=== PATIENT | female | born 1975 | race Caucasian/White ===

== ENCOUNTER 2019-08-05 11:46 | Emergency (ER) | payer OTHER, SELFPAY ==
--- NOTE | 2019-08-05 11:54 | ED.GENADULT ---
HPI - General Adult General Chief complaint: Upper Respiratory Infection Stated complaint: Cold/Flu symptoms Time Seen by Provider: 08/05/19 12:18 Source: patient and RN notes reviewed Mode of arrival: ambulatory Limitations: no limitations History of Present Illness HPI narrative: This patient has had a onset of sinus symptoms consisting of green nasal drainage and postnasal drip sensation with mild sore throat which she feels is from the drainage that began on 08/02/2019. She is also had frontal and maxillary sinus pressure bilaterally. The patient's not had any ear pain or drainage from the ears. She has had no cough. She has had no rashes. She has not noticed a fever although she has not actually taken her temperature with a thermometer. She has had no known exposure to anyone with strep throat, mono, influenza, bronchitis, pneumonia that she is aware of. She has not been traveling. She did have a flu vaccine this season. She would like to be tested for influenza today. Related Data Home Medications Medication Instructions Recorded Confirmed doxycycline hyclate 50 mg PO DAILY 08/05/19 08/05/19 spironolactone 100 mg PO DAILY 08/05/19 08/05/19 Allergies Allergy/AdvReac Type Severity Reaction Status Date / Time Sulfa (Sulfonamide Allergy Unknown Hives Verified 08/05/19 12:21 Antibiotics) Review of Systems Review of Systems: Narrative: CONSTITUTIONAL: Denies fever, chills, or sweats. Noncontributory except as pertains to the past medical history and history of present illness. EYES: Denies visual changes, redness, or discharge. ENT: Denies rhinorrhea, congestion, sore throat, or otalgia. CARDIOVASCULAR: Denies chest pain, palpitations, or edema. RESPIRATORY: Denies cough or dyspnea. GASTROINTESTINAL: Denies abdominal pain, nausea, vomiting, or diarrhea. GENITOURINARY: Denies dysuria or hematuria. SKIN: Denies rash or itching. MUSCULOSKELETAL: Denies back pain, joint pain, or myalgia. NEUROLOGIC: Denies headache, numbness, or weakness. PSYCHIATRIC: Denies anxiety or depression. [facility] Family History Family History (Updated 10/29/17 @ 12:24 by DOCTOR UNKNOWN) Mother Patient's mother is in good health Father Family history of malignant neoplasm Carcinoma of colon Grandparent Diabetes mellitus Family history of hypercholesterolemia Hypertension Social History Social History Smoking status: Current every day smoker Second hand tobacco smoke exposure: No Alcohol intake: current Gender identity (if verbalized by the patient): Female Comments At time of signature, I have reviewed and agree with nursing past medical, surgical, social, and family history.Please see nursing chart for further information. There is no relevant family history pertinent to the presenting complaint. Exam Narrative: Exam Narrative: GENERAL: Well-appearing, well-nourished, and in no acute distress. HEAD: Normocephalic, atraumatic. There is no palpation tenderness over the frontal, maxillary, mastoid sinus areas. EYES: PERRLA and EOMI. EARS: TM's clear bilaterally and the canals are clear. NOSE: Nares are edematous and have purulent rhinorrhea postnasal drip. THROAT:Mucous membranes moist.Oropharynx normal without erythema or exudates. NECK: Supple. No adenopathy of the neck, supraclavicular, axillary, or inguinal areas. RESPIRATORY: No respiratory distress. Airway patent. Respirations non-labored. There are no wheezes, no rales, no retractions, no use of accessory muscles or respirations. Patient is not cyanotic and not dyspneic. Pulse ox on room air is 99% current temperature is 37.3 ?C. HEART: Regular rate and rhythm. No murmur heard. Normal peripheral pulses. ABDOMEN: Soft, nontender, nondistended, normal active bowel sounds.No masses. No rebound or guarding, No organomegaly. No CVA pain. No pain McBurney's point. The patient has a negative House sign and negative Rovsing sign. There are no pulsatile masses or
[2019-08-05 12:12] VITALS: BP 121/70; PULSE 91; RESP 16; TEMP 37.3; O2SAT 99
== END 2019-08-05 12:40 | disposition home or self-care (01) ==
LOC: EXPCOLL 11:57
PROVIDERS: Emergency Provider Family Medicine; PCP Internal Medicine
DX: J01.10 Acute frontal sinusitis, unspecified (principal)
CPT/HCPCS: 87804; 99213; G0463

== ENCOUNTER 2020-05-29 13:37 | Outpatient (CLI) | payer OTHER, SELFPAY ==
--- NOTE | ~2020-05-29 | US_ITS ---
EXAMINATION: US thyroid EXAM DATE: 05/29/2020 13:59 INDICATION: GOITER E04.9 Nontoxic goiter, unspecified . TECHNIQUE: Multiple grayscale and Doppler images of the thyroid were obtained (by a technologist who performed the scan) and subsequently reviewed. Individual nodules and recommendations may be reporte d in accordance with TI-RADS system as designated by the 2017 ACR White Paper TI-RADS committee. Comp arison is made to prior examination from 11/07/2017. FINDINGS: Right thyroid lobe measures 5.5 x 2.1 x 2.4 cm, the left thyroid lobe measures 6.0 x 1.5 x 2.4 cm. Th is is moderately enlarged. There are several thyroid nodules up to 5 mm in size, not significantly ch anged. IMPRESSION: 1. Moderate thyromegaly. 2. Several small nodules not clinically significant. Reviewed, dictated and finalized at location B. [employer]
== END 2020-05-29 13:38 | disposition home or self-care (01) ==
PROVIDERS: PCP Internal Medicine; Visit Provider Obstetrics & Gynecology
DX: E04.9 Nontoxic goiter, unspecified (principal)
CPT/HCPCS: 76536

== ENCOUNTER 2020-07-18 17:20 | Outpatient (CLI) | payer OTHER, SELFPAY ==
--- NOTE | ~2020-07-18 | MM_ITS ---
EXAMINATION: MM screening [facility] w janet HISTORY: Screening TECHNIQUE: Craniocaudal and mediolateral oblique 3-D tomosynthesis images were obtained and synthetic 2-D images were generated. CAD analysis was submitted and interpreted. COMPARISON: Comparison to multiple prior studies sequentially, with oldest reviewed study dated 11/13. BREAST PARENCHYMAL COMPOSITION: There are scattered areas of fibroglandular density. FINDINGS: There is no evidence of suspicious mass, calcification, or architectural distortion to sugg est malignancy in either breast. There has been no suspicious interval change. IMPRESSION: 1. No mammographic evidence of malignancy. 2. Recommend routine screening mammography in one year. BI-RADS Category 1: Negative Reviewed, dictated and finalized at location A. ERIES DIVER
== END 2020-07-18 17:21 | disposition home or self-care (01) ==
LOC: ANHIMG 17:22
PROVIDERS: PCP Internal Medicine; Visit Provider Obstetrics & Gynecology
DX: Z12.31 Encounter for screening mammogram for malignant neoplasm of breast (principal)
CPT/HCPCS: 77063; 77067

== ENCOUNTER 2021-08-13 00:43 | Day surgery (SDC) | payer BC, SELFPAY ==
[2021-08-06 13:27] VITALS: BMI 34.4
--- NOTE | 2021-08-13 11:49 | P.PNAN_ITS ---
Anes - Initial Pre Proc Eval Procedure: Operation Date: 08/13/21 13:00 Proposed Procedures p Colonoscopy - Tanner Xie MD Date/Time: 08/13/21 11:49 Surgeon: Tanner Xie MD Pre Op Diagnosis: melena Patient Data Age: 45 Gender: F Height: 1.78 m Weight: 109 kg Allergies Allergy/AdvReac Type Severity Reaction Status Date / Time Sulfa (Sulfonamide Allergy Unknown Hives Verified 08/13/21 11:54 Antibiotics) Home Medications Medication Instructions Recorded Confirmed Type spironolactone 200 mg PO DAILY 08/05/19 08/06/21 History sertraline 100 mg tablet 100 mg PO DAILY #90 tablet 01/01/21 08/06/21 Rx Patient hx anesthesia problems: none Family hx anesthesia problems: none Results Review: All pre-operative results and documents have been reviewed as part of the pre-operative evaluation. [facility] Past Medical History Medical History (Updated 08/13/21 @ 12:04 by Tanner Xie MD) x1 Anxiety Depression Enlarged thyroid Hair loss High cholesterol Memory loss Menopausal symptoms Stress fracture of metatarsal bone of right foot Vaginal delivery x1 Weight gain Surgical History Surgical History S/P thoracic surgical sympathectomy Family History Family History (Updated 01/11/21 @ 08:11 by Airam Matthews RT(R)) Mother Patient's mother is in good health Father Family history of malignant neoplasm Carcinoma of colon Grandparent Diabetes mellitus Family history of hypercholesterolemia Hypertension Other High cholesterol Social History Social History (Updated 01/11/21 @ 08:12 by Airam Matthews RT(R)) Smoking packs per day: 0.5 Smoking cigarettes per day: 10.0 Years smoked: 28 Smoking pack-years: 14.00 Smoking status: Current some day smoker Tobacco type: cigarettes Second hand tobacco smoke exposure: No Alcohol intake: current Drinks per week: 10 Substance use: never Substance use type: does not use Living arrangements: alone Gender identity (if verbalized by the patient): Female Spiritual care concerns: No Anes - Eval Final PreProcedure Day of Procedure 08/13/21 11:49 Patient weight: obese Heart: regular rate and rhythm Lungs: clear to auscultation and normal air movement Airway: Mallampati scale class II Neurological: alert and oriented Last oral intake: >/= 8 hours ASA classification: II Emergent: no Anesthetic plan: proceed Anesthesia type and monitoring: general GIVS and standard monitoring Results Review: All pre-operative results and documents have been reviewed as part of the pre-operative evaluation. Informed Consent: The patient's anesthetic plan and its attendant risks and benefits were discussed with the patient/family/POA. Questions were solicited and answers provided to the satisfaction of the patient/family/POA.
[2021-08-13 12:00] VITALS: BP 119/79; PULSE 99; RESP 18; TEMP 36.3; O2SAT 100
--- NOTE | 2021-08-13 12:02 | WPDGICN ---
Assessment and Plan Assessment and plan (1) Blood in stool: Code(s): K92.1 - Melena Status: Acute Assessment and Plan: Patient has had intermittent blood in her stools. Plan is for colonoscopy to assess for etiology. High-fiber diet is advised for the possibility of hemorrhoids. Further recommendations will be given after endoscopy. (2) Family history of colon cancer in father: Code(s): Z80.0 - Family history of malignant neoplasm of digestive organs Status: Acute Assessment and Plan: Patient's father is reported to have colon cancer. For this reason screening colonoscopy advised at 5 year intervals. GI Consult Note Consult date/time: 08/13/21 12:02 HPI: La Briscoe is a 45 year old female Presents for colonoscopy. Patient known to have hemorrhoids from previous . Over the last month has noted alteration in her bowel habits. Typically her bowel habits were hard. Over the last month the became more soft and loose. She has noticed occasional bright red blood with wiping. On 1 occasion had blood in the toilet bowl. She denies any abdominal or rectal pain. She presents today for evaluation of this blood in her stools. Family history is noncontributory. Family history is significant her father had colon cancer. Review of Systems Review of Systems: All systems reviewed & are unremarkable except as noted in HPI and below PMFSH Past Medical History Medical History (Updated 08/13/21 @ 12:04 by Tanner Xie MD) x1 Anxiety Depression Enlarged thyroid Hair loss High cholesterol Memory loss Menopausal symptoms Stress fracture of metatarsal bone of right foot Vaginal delivery x1 Weight gain Surgical History Surgical History S/P thoracic surgical sympathectomy Family History Family History (Updated 01/11/21 @ 08:11 by Airam Matthews RT(R)) Mother Patient's mother is in good health Father Family history of malignant neoplasm Carcinoma of colon Grandparent Diabetes mellitus Family history of hypercholesterolemia Hypertension Other High cholesterol Social History Social History (Updated 01/11/21 @ 08:12 by Airam Matthews RT(R)) Smoking packs per day: 0.5 Smoking cigarettes per day: 10.0 Years smoked: 28 Smoking pack-years: 14.00 Smoking status: Current some day smoker Tobacco type: cigarettes Second hand tobacco smoke exposure: No Alcohol intake: current Drinks per week: 10 Substance use: never Substance use type: does not use Living arrangements: alone Gender identity (if verbalized by the patient): Female Spiritual care concerns: No Meds Home Medications and Allergies Home Medications Medication Instructions Recorded Confirmed Type spironolactone 200 mg PO DAILY 08/05/19 08/06/21 History sertraline 100 mg tablet 100 mg PO DAILY #90 tablet 01/01/21 08/06/21 Rx Allergies Allergy/AdvReac Type Severity Reaction Status Date / Time Sulfa (Sulfonamide Allergy Unknown Hives Verified 08/13/21 11:54 Antibiotics) Exam Narrative: Physical exam reveals patient to be alert. Vital signs stable. HEENT exam reveals no icterus. Lungs are clear to auscultation and percussion. Heart is without murmur or extra sounds. Abdominal exam bowel sounds are present soft nontender with no organomegaly. Digital external rectal exam is normal.
[2021-08-13] MEDS: LACTATED RINGERS 1,000 ML 150 ML IV CONT (12:11)
[2021-08-13 12:55] VITALS: BP 117/57; PULSE 77; RESP 20; O2SAT 97
[2021-08-13 13:05] VITALS: BP 126/62; PULSE 81; RESP 21; O2SAT 100
[2021-08-13 13:15] VITALS: BP 119/57; PULSE 73; RESP 24; O2SAT 100
== END 2021-08-13 13:26 | disposition home or self-care (01) ==
PROVIDERS: PCP Internal Medicine; Visit Provider Internal Medicine Gastroenterology
PROC: 0DJD8ZZ Inspection of Lower Intestinal Tract, Via Natural or Artificial Opening Endoscopic (ICD-10-PCS; CPT 45378; principal; 2021-08-13 13:00)
DX: K62.5 Hemorrhage of anus and rectum (principal); K62.1 Rectal polyp; K64.8 Other hemorrhoids; Z80.0 Family history of malignant neoplasm of digestive organs; E78.00 Pure hypercholesterolemia, unspecified; F41.8 Other specified anxiety disorders; F17.210 Nicotine dependence, cigarettes, uncomplicated; E66.9 Obesity, unspecified; Z68.36 Body mass index [BMI] 36.0-36.9, adult
CPT/HCPCS: 45380; 88305; J2704; J7120

== ENCOUNTER 2022-02-09 11:49 | Outpatient (CLI) | payer BC, SELFPAY ==
--- NOTE | ~2022-02-09 | MM_ITS ---
EXAMINATION: MM screening [facility] BI w janet HISTORY: Screening mammogram TECHNIQUE: Craniocaudal and mediolateral oblique 3-D tomosynthesis images were obtained and synthetic 2-D images were generated. CAD analysis was submitted and interpreted. COMPARISON: 07/18/2020, 03/26/2019, 11/17/2017, 11/13/2017 BREAST PARENCHYMAL COMPOSITION: The breasts are heterogeneously dense, which may obscure small masses . FINDINGS: Scattered benign-appearing calcifications are present. There is no suspicious mass, calcifi cation, or architectural distortion to suggest malignancy in either breast. There has been no suspici ous interval change. IMPRESSION: 1. No mammographic evidence of malignancy. 2. Recommend routine screening mammography in one year. BI-RADS Category 2: Benign finding(s). Reviewed, dictated and finalized at location A.
== END 2022-02-09 11:50 | disposition home or self-care (01) ==
PROVIDERS: PCP Internal Medicine; Visit Provider Obstetrics & Gynecology
DX: Z12.31 Encounter for screening mammogram for malignant neoplasm of breast (principal)
CPT/HCPCS: 77063; 77067

== ENCOUNTER 2023-01-22 13:20 | Outpatient (CLI) | payer BC, SELFPAY ==
--- NOTE | ~2023-01-22 | US_ITS ---
EXAMINATION: US thyroid DATE: 01/22/2023 14:18 INDICATION: Nontoxic goiter, unspecified. TECHNIQUE: Multiple ultrasound images of the thyroid were obtained. COMPARISON: Ultrasound 05/29/2020, 11/07/17 FINDINGS: The right thyroid lobe measures 6.2 x 2.1 x 2.4 cm. The left thyroid lobe measures 6.3 x 1.8 x 2.5 c m. In the right thyroid lobe, there is a 5 mm mixed solid and cystic, hypoechoic, wider than tall no dule with smooth margin without echogenic foci (TI-RADS TR3). In the left thyroid lobe, there is a 9 mm solid, hypoechoic, wider than tall nodule with smooth margin without echogenic foci (TR4). In the left thyroid lobe, there is 11 mm solid, hypoechoic, wider than tall nodule with smooth margin withou t echogenic foci (TR4), not seen on prior imaging. IMPRESSION: 1. Multinodular goiter. Thyroid ultrasound is recommended in one year. Reviewed, dictated and finalized at location A.
== END 2023-01-22 13:21 | disposition home or self-care (01) ==
PROVIDERS: PCP Internal Medicine; Visit Provider Internal Medicine
DX: E04.2 Nontoxic multinodular goiter (principal)
CPT/HCPCS: 76536

== ENCOUNTER 2023-04-04 09:58 | Emergency (ER) | payer BC, SELFPAY ==
[2023-04-04 10:06] VITALS: BP 149/88; PULSE 89; RESP 18; TEMP 36.6; O2SAT 97
--- NOTE | 2023-04-04 11:06 | ED.FEMALEGU ---
HPI - Female Genitourinary General Chief complaint: Urogenital-Female Stated complaint: Urinary issue Time Seen by Provider: 04/04/23 11:02 Source: patient and RN notes reviewed Mode of arrival: ambulatory Limitations: no limitations History of Present Illness HPI Narrative: Patient presents today complaining of urgency, dysuria, suprapubic cramping, and hematuria that started this morning. She has tried no medication for symptoms prior to arrival. No recent antibiotic use. Related Data Home Medications Medication Instructions Recorded Confirmed spironolactone 100 mg tablet 200 mg PO DAILY 08/05/19 04/04/23 doxycycline hyclate 50 mg capsule 50 mg PO DAILY 01/15/23 04/04/23 Allergies Allergy/AdvReac Type Severity Reaction Status Date / Time Sulfa (Sulfonamide Allergy Unknown Hives Verified 04/04/23 10:05 Antibiotics) Review of Systems Review of Systems: CONSTITUTIONAL: Denies body aches, fever, chills, or sweats. EYES: Denies visual changes, redness, or discharge. ENT: Denies rhinorrhea, congestion, sore throat, or otalgia. CARDIOVASCULAR: Denies chest pain, palpitations, or edema. RESPIRATORY: Denies cough or dyspnea. GASTROINTESTINAL: Denies abdominal pain, nausea, vomiting, or diarrhea. GENITOURINARY: + dysuria, urgency, suprapubic cramping, hematuria. SKIN: Denies rash, itching, or wounds. MUSCULOSKELETAL: Denies back pain, joint pain, or myalgia. NEUROLOGIC: Denies headache, numbness, tingling, or weakness. PSYCH: Denies depression or anxiety. [facility] Past Medical History Medical History x1 Anxiety Depression Enlarged thyroid Hair loss High cholesterol Memory loss Menopausal symptoms Stress fracture of metatarsal bone of right foot Vaginal delivery x1 Weight gain Surgical History Surgical History S/P Botox injection S/P thoracic surgical sympathectomy Family History Family History Mother Patient's mother is in good health Father Family history of malignant neoplasm Carcinoma of colon Grandparent Diabetes mellitus Family history of hypercholesterolemia Hypertension Other High cholesterol Social History Social History Smoking packs per day: 0.5 Smoking cigarettes per day: 10.0 Years smoked: 28 Smoking pack-years: 14.00 Smoking status: Light tobacco smoker Tobacco type: cigarettes Second hand tobacco smoke exposure: No Additional smoking assessment comments: Only when drinking Alcohol intake: current Drinks per week: 10 Substance use: never Substance use type: does not use Living arrangements: alone Gender identity (if verbalized by the patient): Female Spiritual care concerns: No Comments At time of signature, I have reviewed and agree with nursing past medical, surgical, social and family history unless otherwise noted. Please see nursing chart for further information. There is no relevant family history pertinent to the presenting complaint Exam Narrative: GENERAL: Well-appearing, well-nourished, and in no acute distress. HEAD: Normocephalic, atraumatic. EYES: EOMI. No redness or drainage. Conjunctivae normal. ENT: Mucous membranes pink and moist. NECK: Normal AROM. CHEST: No respiratory distress. Clear to auscultation. HEART: Regular rate and rhythm. No murmur appreciated. Normal peripheral pulses. ABDOMEN: Soft, nontender, nondistended, normal active bowel sounds. -CVAT EXTREMITIES: Normal range of motion. No edema. SKIN: Warm, dry, no rash. Capillary refill normal. Normal skin turgor. NEURO: No focal deficits. Alert and oriented x3. Gait steady. PSYCH: Normal affect. No signs of depression or anxiety. Course Course Level of Care: Express Care Visit Vital Signs
== END 2023-04-04 11:14 | disposition home or self-care (01) ==
PROVIDERS: Emergency Provider Nurse Practitioner; PCP Internal Medicine
DX: N30.01 Acute cystitis with hematuria (principal); F17.210 Nicotine dependence, cigarettes, uncomplicated
CPT/HCPCS: 81003; 87086; 87088; 99213; G0463

== ENCOUNTER 2023-04-29 10:10 | Outpatient (CLI) | payer BC, SELFPAY ==
--- NOTE | ~2023-04-29 | MM_ITS ---
EXAMINATION: MM screening [facility] BI w janet HISTORY: Screening mammogram TECHNIQUE: Craniocaudal and mediolateral oblique 3-D tomosynthesis images were obtained and synthetic 2-D images were generated. CAD analysis was submitted and interpreted. COMPARISON: 02/09/2022, 07/18/2020, 03/26/2019 bilateral screening mammogram examinations BREAST PARENCHYMAL COMPOSITION: There are scattered areas of fibroglandular density. FINDINGS: Scattered bilateral punctate benign-appearing microcalcifications. There is no evidence of suspicious mass, calcification, or architectural distortion to suggest malignancy in either breast. T here has been no suspicious interval change. IMPRESSION: 1. No mammographic evidence of malignancy. 2. Recommend routine screening mammography in one year. BI-RADS Category 2: Benign finding(s). Reviewed, dictated and finalized at location A.
== END 2023-04-29 10:11 | disposition home or self-care (01) ==
PROVIDERS: PCP Internal Medicine; Visit Provider Obstetrics & Gynecology
DX: Z12.31 Encounter for screening mammogram for malignant neoplasm of breast (principal)
CPT/HCPCS: 77063; 77067

== ENCOUNTER 2024-05-18 13:56 | Outpatient (CLI) | payer BC, SELFPAY ==
--- NOTE | ~2024-05-18 | MM_ITS ---
EXAMINATION: MM screening [facility] BI w janet HISTORY: Screening mammogram TECHNIQUE: Craniocaudal and mediolateral oblique 3-D tomosynthesis images were obtained and synthetic 2-D images were generated. CAD analysis was submitted and interpreted. COMPARISON: 04/29/2023, 02/09/2022, 07/18/2020 BREAST PARENCHYMAL COMPOSITION:Not Dense. There are scattered areas of fibroglandular density. FINDINGS: No suspicious mass, calcification, or architectural distortion are identified in either toya ast to suggest malignancy. There has been no suspicious interval change. IMPRESSION: No mammographic evidence of malignancy. Recommend routine screening mammography in one year. BI-RADS Category 1: Negative Reviewed, dictated and finalized at location . ISION ESTIMATOR
== END 2024-05-18 13:57 | disposition home or self-care (01) ==
LOC: ANHIMG 14:00
PROVIDERS: PCP Internal Medicine; Visit Provider Obstetrics & Gynecology
DX: Z12.31 Encounter for screening mammogram for malignant neoplasm of breast (principal)
CPT/HCPCS: 77063; 77067

== ENCOUNTER 2025-02-08 14:59 | Outpatient (CLI) | payer OTHER, SELFPAY ==
--- NOTE | ~2025-02-08 | US_ITS ---
Thyroid ultrasound. Clinical History: Nontoxic goiter COMPARISON: 01/22/2023 Findings: Real-time sonography of the thyroid gland was performed. The right lobe measures 6.6 x 1.9 x 2.3 cm. The left lobe measures 6.6 x 1.7 x 2.2 cm. The isthmus is 2 mm in AP diameter. There is a 1.3 x 0.7 x 1.3 hypoechoic nodule at the left lower pole. Additional 3 mm hypoechoic left thyroid nodule present. Suspected vague 1.8 x 0.9 x 1.2 cm hypoechoic nodule at the right lower pole. Impression: Bilateral TR-4 nodules, as detailed above, mildly increased in size from prior exam. Reviewed, dictated and finalized at location M. Impression: Bilateral TR-4 nodules, as detailed above, mildly increased in size from prior exam.
== END 2025-02-08 15:00 | disposition home or self-care (01) ==
LOC: MICIMG 15:00
PROVIDERS: PCP Obstetrics & Gynecology; Visit Provider Obstetrics & Gynecology
DX: E04.2 Nontoxic multinodular goiter (principal)
CPT/HCPCS: 76536

== ENCOUNTER 2025-06-23 13:05 | Outpatient (CLI) | payer OTHER, SELFPAY ==
--- NOTE | ~2025-06-23 | US_ITS ---
EXAMINATION: US FNA w image guidance, US FNA additional DATE: 06/23/2025 13:55 INDICATION: Nontoxic bilateral thyroid nodules TECHNIQUE: A time-out was performed to verify the patient's name, date of , and procedure to be performed. The procedure and its benefits and risks were discussed with the patient. Risks specifically discussed included bleeding and infection. The patient understood the risks and agreed to proceed. The neck was prepped and draped in the usual sterile manner. Attention was first turned to the right thyroid nodule. 3 mL 1% lidocaine was used for local anesthesia. 5 passes were made with a 25G needle into the lesion. Appropriate needle location was documented with continuous sonographic guidance. Attention was entered to the left thyroid nodule. An additional 3 mm 1% lidocaine was used for local anesthesia. 5 passes were made with a 25G needle into the lesion. Appropriate needle location was documented with continuous sonographic guidance. Sterile bandages were applied. There were no immediate complications. FINDINGS: Grayscale ultrasound images demonstrate biopsy needles advanced into the 1.9 cm solid hypoechoic right thyroid nodule of concern. Subsequent images demonstrate needle advanced into the 1.3 cm hypoechoic nodule inferior left thyroid lobe. IMPRESSION: 1. Successful ultrasound-guided fine needle aspiration of the previously noted 1.8 cm TI-RADS 4 nodule at the inferior right thyroid lobe. 2. Successful ultrasound-guided fine needle aspiration of the previously noted 1.3 cm TI-RADS 4 nodule at the inferior right thyroid lobe. Reviewed, dictated and finalized at location A. WARE ARCHITECT IMPRESSION: 1. Successful ultrasound-guided fine needle aspiration of the previously noted 1.8 cm TI-RADS 4 nodule at the inferior right thyroid lobe. 2. Successful ultrasound-guided fine needle aspiration of the previously noted 1.3 cm TI-RADS 4 nodule at the inferior right thyroid lobe.
--- NOTE | 2025-06-23 13:55 | CY_PTH ---
PATIENT: La Briscoe LOC: ANHIMG U#:[id number] AGE/SX: 49/F ROOM: RE06/23/[address]: Lopez Gill MD : 1975 BED: DIS: 06/23/2025 SPEC #: [id number] RECD: 06/23/25 14:06 STATUS: BRIDGET SANTAMARIA #: [id number] JOSHUA: 06/23/25 13:[address]: Lopez Gill DEPT: [facility] Cytology RECD BY: Anna Dia ENTERED: 06/23/25 14:07 SP TYPE: Cytology OTHR DR: Elmer Camargo DO Tissues: A - FNA Thyroid B - FNA Thyroid Procedures: Hematoxylin and Eosin Stain Cell Block Fine Needle Aspiration Evaluation Fine Needle Aspiration Pathologist
--- OUTSIDE RECORDS SUMMARY | 2025-06-23 14:03 | XMS_ITS | Clinical Summary ---
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
--- OUTSIDE RECORDS SUMMARY | 2025-06-23 14:03 | XMS_ITS | Clinical Summary ---
Author Organization [facility] [employer] [facility] Address [address] [place] [address] Phone Care Team Providers Care Bodywork Therapist Name Role Phone Artur Rene MD Primary Care Provider [phone]- [phone] Allergies Active Allergy Reactions Criticality Noted Date Comments Sulfanilamide Hives Medium Reaction: Hives, Medications naproxen (ANAPROX DS) 550 mg tablet take 1 tablet (550MG) by oral route every 8 hours as needed 30 1 07/22/2012 Active doxycycline hyclate (VIBRAMYCIN) 50 mg capsule Take 50 mg by mouth daily 05/24/2020 Active spironolactone (ALDACTONE) 100 mg tablet Take 200 mg by mouth daily 05/03/2020 Active cholecalciferol , vitamin D3, (VITAMIN D3 ORAL) Take by mouth daily Active sertraline (ZOLOFT) 50 mg tablet Take 2 tablets (100 mg total) by mouth daily 180 tablet 3 07/28/2020 Active Active Problems Problem Noted Date Diagnosed Date Urinary urgency 02/09/2014 Overview (10/10/2016): Urinary urgency Surgical History Surgery Date Site/Laterality Comments OTHER SURGICAL HISTORY 2002 : Medical History Medical History Date Comments Hx Other Medical 1995 laparoscopy Hx Other Medical 2000 liposuction Hx Other Medical 2004 surgery for hyp erhydrosis Hx Other Medical ; Outc ome: 8lb(s) 5 oz Unknown Depression High cholesterol Family History Medical History Relation Name Comments Coronary artery disease Maternal Grandfather 2 Coronary artery disease; Hypertension Maternal Grandmother 2 Hyper tension; Relation Name Status Comments Maternal Grandfather 1 Alive Maternal Grandfather 2 Maternal Grandmother 1 Alive Maternal Grandmother 2 Social History Tobacco Use Types Packs/Day Years Used Date Smoking Tobacco: Every Day Smokeless Tobacco: Never Alcohol Use Standard Drinks/Week Comments Yes 0 (1 standard drink = 0.6 oz pur e alcohol) Moderate Personal Safety Answer Date Recorded Getting School Help Needed Not on file 09/18 Comments No Sex and Gender Information Value Date Recorded Sex Assigned at Not on file Legal Sex Female 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 Gender Identity Not on file Sexual Orientation Not on file Last Filed Vital Signs Vital Sign Reading Time Taken Comments Blood Pressure 102/78 07/28/2020 3:16 PM RIVER CROSSING SUPERVISOR Pulse 64 07/28/2020 3:16 PM RIVER CROSSING SUPERVISOR Temperature - - Respiratory Rate 16 07/28/2020 3:16 PM RIVER CROSSING SUPERVISOR Oxygen Saturation - - Inhaled Oxygen Concentration - - Weight 106.6 kg (235 lb) 07/28/2020 3:16 PM RIVER CROSSING SUPERVISOR Height 180.3 cm (5' 11) 07/28/2020 3:16 PM RIVER CROSSING SUPERVISOR Body Mass Index 32.78 07/28/2020 3:16 PM RIVER CROSSING SUPERVISOR Plan of Treatment Not on file [facility] [place] [address] AET[employer] SIG [id number] AETNA SIG [id number] Care Teams Bodywork Therapist Relationship Specialty Start Date End Date Artur Rene MD [address] [place], [place] [id number] PCP - General 10/04/16
--- OUTSIDE RECORDS SUMMARY | 2025-06-23 14:03 | XMS_ITS | Encounter Summary ---
Author Organization [facility] Address [address] [address] Care Team Providers Care Bindery Helper Name Role Phone Artur Rene MD Primary Care Provider [phone]- [phone] Artur Rene MD Primary Care Provider +1- [phone] Encounter Details Date Type Department Care Team (Late st Contact Info) Description 10/03/2016 Orders Only [facility] ProviderWillie MD [address] [place], [place] [id number] Social History Tobacco Use Types Packs/Day Years Used Date Smoking Tobacco: Every Day Alcohol Use Standard Drinks/Week Comments Yes 0 (1 standard drink = 0.6 oz pur e alcohol) Comments Unknown Sex and Gender Information Value Date Recorded Sex Assigned at Not on file 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 Historical Provider [facility] Final Result documented in this encounter Visit Diagnoses Not on filedocumented in this encounter Care Teams Bindery Helper Relationship Specialty Start Date End Date Artur Rene MD [address] [place] [address] PCP - General 10/04/16 Artur Rene MD [address] [facility] [address] [place] [address] PCP - General 02/09/14 10/03/16 documented as of this encounter
--- OUTSIDE RECORDS SUMMARY | 2025-06-23 14:03 | XMS_ITS | Encounter Summary ---
Author Organization [facility] Address [address] [place] [address] Care Team Providers Care 911 Emergency Services Dispatcher Name Role Phone Unavailable Primary Care Provider Unavailabl e Encounter Details Date Type Department Care Team (Late st Contact Info) Description 11/26/2021 Abstract [facility] [id number] [address] Apolinar Padron MD [address] [facility] [address] [place], [place] [id number] Social History Tobacco Use Types Packs/Day Years Used Date Smoking Tobacco: Never Assessed Comments Unknown Sex and Gender Information Value Date Recorded Sex Assigned at Not on file 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
--- OUTSIDE RECORDS SUMMARY | 2025-06-23 14:03 | XMS_ITS | Patient Health Record ---
Author Organization [facility] Address [address] [place], [place] [id number] Care Team Providers Care Systems Applications Programming Lead Name Role Phone SRINIVASA FERRARI Unavailable [phone] Artur Rene Unavailable Unavailable Reason For Referral No Information Medications Medication SIG (Take, Route, Frequency, Duration) Notes Start Date End Date Status acetaminophen 325 MG / hydrocodone bitartrate 5 MG Oral Tablet ORAL acetaminophen 325 MG / hydrocodone bitartrate 5 MG Oral TabletOriginal Medicationacetaminophen 325 MG / hydrocodone bitartrate 5 MG Oral Tablet *Reorder from [facility] for eRx and Interaction Alerts* 6 Active Medrol Dosepak ORAL Medrol DosepakOr iginal MedicationMedrol Dosepak *Reorder from [facility] for eRx and Interaction Alerts* 5 Active Social History Social History Additional Details Category Social Info Options Details Migrated Social History Migrated Social History Smoking Status : Current every day smoker , Alcohol intake : , History of tobacco use : Current every day smoker Plan Of Treatment No Information Insurance Providers Payer Name Payer Address Payer Phone Subscriber Number Group Number Insured Name Patient Relationship to Insured Coverage Start Date Coverage End Date [employer] ([employer]) [address] BENNY Linton [id number] RAINE PASTRANA Self - patient is the insured
== END 2025-06-23 13:06 | disposition home or self-care (01) ==
PROVIDERS: PCP Internal Medicine; Visit Provider Otolaryngology
DX: E04.2 Nontoxic multinodular goiter (principal)
CPT/HCPCS: 10005; 10006; 88172; 88173; 88305